=== PATIENT | male | born 1980 | race African-American/Black ===

== ENCOUNTER 2023-01-11 10:57 | Emergency (ER) | payer MEDICAID ==
[~2023-01-11] VITALS: Ht 175.3 cm; Wt 77.1 kg
[2023-01-11 11:18] VITALS: BP 128/73; PULSE 122; RESP 16; TEMP 98.2; O2SAT 96
[2023-01-11 12:12] LABS: HEMATOCRIT. 40.9 % (42.0-52.0); HEMOGLOBIN. 13.6 g/dL (14.0-18.0); MEAN CORPUSCULAR HEMOGLOBIN 29.3 pg (28.0-32.0); MEAN CORPUSCULAR HGB CONC 33.3 g/dL (31.0-37.0); MEAN CORPUSCULAR VOLUME 88.1 fL (80.0-94.0); MEAN PLATELET VOLUME 8.9 fl (7.4-10.4); PLATELET 233 x1000/uL (130-400); RED BLOOD CELL COUNT 4.64 mill/uL (4.7-6.1); WHITE BLOOD COUNT 12.2 x1000/uL (4.5-11.0)
[2023-01-11 12:15] LABS: DIFFERENTIAL COMMENT 1
[2023-01-11 12:44] LABS: ALANINE AMINOTRANSFERASE 35 IU/L (10-49); ALBUMIN 4.5 g/dL (3.2-4.8); ASPARTATE AMINOTRANSFERASE 44 IU/L (<34); CALCIUM 9.3 mg/dL (8.7-10.4); CARBON DIOXIDE 26 mEq/L (21-32); CHLORIDE 99 mEq/L (98-107); CREATININE 1.2 mg/dL (0.6-1.3); GLUCOSE 96 mg/dL (70-105); POTASSIUM 3.8 mEq/L (3.5-5.1); PROTEIN TOTAL 9.2 g/dL (6.0-8.3); SODIUM 133 mEq/L (136-145); UREA NITROGEN BLOOD 9 mg/dL (9-23)
[2023-01-11 13:48] LABS: PLATELET ESTIMATE NORMAL
[2023-01-11] MEDS ORDERED: ALBU6.7H15 INH (15:32)
[2023-01-11] MEDS ORDERED: P50 MT (15:32)
[2023-01-11] MEDS ORDERED: AMOX500T2 MT (15:32)
[2023-01-11] MEDS ORDERED: ALBU05 NEB (15:32)
== END 2023-01-11 16:37 | disposition home or self-care (01) ==
LOC: ER 12:14
DX: J18.8 Other pneumonia, unspecified organism (principal); J45.901 Unspecified asthma with (acute) exacerbation; Z90.49 Acquired absence of other specified parts of digestive tract
CPT/HCPCS: 36415; 71045; 74018; 80053; 85025; 93005; 99285